=== PATIENT | female | born 1955 | race Caucasian/White ===

== ENCOUNTER 2019-06-06 14:16 | Outpatient (CLI) | payer BC, SELFPAY ==
--- NOTE | 2019-06-06 15:19 | DI.US_ITS ---
SYMPTOMS/DIAGNOSIS: CALF PAIN X 1 WEEK, SWELLING, ? DVT BILATERAL LOWER EXTREMITY ULTRASOUND: RIGHT LOWER EXTREMITY: There is a 2.0 x 1.7 x 1.4 cm popliteal fossa cyst. The femoral and popliteal veins and visualized calf veins are freely compressible. No thrombus is visible. No superficial venous thrombosis is seen. IMPRESSION: Small popliteal cyst. No evidence of DVT. LEFT LOWER EXTREMITY: The femoral and popliteal veins and visualized calf veins are freely compressible. The Doppler venous waveform augments normally. No deep or superficial thrombosis is identified. There is no Reed's cyst or hematoma. IMPRESSION: Negative left lower extremity ultrasound. No evidence of DVT.
== END 2019-06-06 14:36 ==
PROVIDERS: PCP Internal Medicine; Visit Provider Internal Medicine
DX: M79.661 Pain in right lower leg (principal); M79.662 Pain in left lower leg; R22.41 Localized swelling, mass and lump, right lower limb; R22.42 Localized swelling, mass and lump, left lower limb; M71.21 Synovial cyst of popliteal space [Baker], right knee
CPT/HCPCS: 93970